=== PATIENT | female | born 1985 | race Caucasian/White ===

== ENCOUNTER 2016-04-21 14:54 | Emergency (ER) | payer OTHER ==
--- NOTE | 2016-04-21 16:16 | ED MED RECONCILIATION SUMMARY ---
Patient: CARSON JING Jeremias Medication Reconciliation Report [facility] VisitID: [id number] [address] [address] 30y, F Registration Date/Time: 04/21/2016 Weight: 80.7 kg Height/Length: 69 in. BMI: 26.3 ALLERGIES: No Known Drug Allergy The patient's Home Medications are listed below: THE FOLLOWING MEDICATIONS NEED TO BE RECONCILED: Adderall Oral 20 mg, 2x a day The source(s) of the original Home Medication information: patient The following Medications were given to the patient in the Emergency Department: None. The following Medications were prescribed to the patient: None.
--- NOTE | 2016-04-21 16:16 | ED MAR SUMMARY ---
..... Medication Administration Record [facility] [address], [place] [id number] Patient: JING BYRD Visit ID: [id number] 30y, F Weight: 80.7 kg Height/Length: 69 in BMI: 26.3 ALLERGIES: No Known Drug Allergy
--- NOTE | 2016-04-21 16:16 | ED MED RECONCILIATION SUMMARY ---
Patient: CARSON JING Jeremias Medication Reconciliation Report [facility] VisitID: [id number] [address] [place] [address] 30y, F Registration Date/Time: 04/21/2016 Weight: 80.7 kg Height/Length: 69 in. BMI: 26.3 ALLERGIES: No Known Drug Allergy The patient's Home Medications are listed below: THE FOLLOWING MEDICATIONS NEED TO BE RECONCILED: Adderall Oral 20 mg, 2x a day The source(s) of the original Home Medication information: patient The following Medications were given to the patient in the Emergency Department: None. The following Medications were prescribed to the patient: None.
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
--- NOTE | 2016-04-21 16:16 | ED MAR SUMMARY ---
..... Medication Administration Record [facility] [address], [place] [id number] Patient: JING BYRD Visit ID: [id number] 30y, F Weight: 80.7 kg Height/Length: 69 in BMI: 26.3 ALLERGIES: No Known Drug Allergy
== END 2016-04-21 15:32 | disposition left against medical advice (07) ==
LOC: ED SRH 14:54
DX: Z53.21 Procedure and treatment not carried out due to patient leaving prior to being seen by health care provider (principal)

== ENCOUNTER 2016-07-25 16:58 | Emergency (ER) | payer OTHER ==
--- NOTE | 2016-07-25 18:11 | DIAGNOSTIC IMAGING REPORT ---
PROCEDURE: XR ELBOW 3 OR 4 VIEWS - RIGHT INDICATION: PAIN TECHNIQUE: Four views. COMPARISON: None. FINDINGS: Osseous structures and joint spaces are normal. No evidence of an effusion. IMPRESSION: 1. Normal right elbow.
--- NOTE | 2016-07-25 18:12 | DIAGNOSTIC IMAGING REPORT ---
PROCEDURE: XR SHOULDER 2 OR MORE VW-RIGHT INDICATION: PAIN TECHNIQUE: Three views. COMPARISON: None. FINDINGS: Osseous structures and joint spaces are normal. IMPRESSION: 1. Normal right shoulder.
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
--- NOTE | 2016-07-25 18:49 | ED ORDER SUMMARY ---
..... Patient: JING BYRD OrderSheet [facility] VisitID: [id number] [address] [place] [address] 30y, F Registration Date/Time: 07/25/2016 ORDER SHEET Weight: 76.6 kg (stated) Allergies: No Known Drug Allergy GENERAL ORDERS: Shoulder 2V or more Right Urgent (17:16 07/25/2016 HBivens A.R.N.P.) (Ack 17:33 KHoerner) (17:40 KHoerner) Elbow 3 or 4V Right Urgent (17:16 07/25/2016 HBivens A.R.N.P.) (Ack 17:33 KHoerner) (17:40 KHoerner) EKG - ER Stat (17:16 07/25/2016 HBivens A.R.N.P.) (17:16 LNations ER Tech1) MEDICATION ORDERS: IV FLUIDS: ORDER SHEET NOTES: [Electronically signed by Rosetta Jha R.N. (19:04 07/25/2016)] [Electronically signed by Sharita Morrissey.R.N.P. (20:47 07/25/2016)] [Electronically locked/signed by Rosetta Jha R.N. (19:04 07/25/2016)]
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
--- NOTE | 2016-07-25 18:49 | ED ORDER SUMMARY ---
..... Patient: JING BYRD OrderSheet [facility] VisitID: [id number] [address] [place] [address] 30y, F Registration Date/Time: 07/25/2016 ORDER SHEET Weight: 76.6 kg (stated) Allergies: No Known Drug Allergy GENERAL ORDERS: Shoulder 2V or more Right Urgent (17:16 07/25/2016 HBivens A.R.N.P.) (Ack 17:33 KHoerner) (17:40 KHoerner) Elbow 3 or 4V Right Urgent (17:16 07/25/2016 HBivens A.R.N.P.) (Ack 17:33 KHoerner) (17:40 KHoerner) EKG - ER Stat (17:16 07/25/2016 HBivens A.R.N.P.) (17:16 LNations ER Tech1) MEDICATION ORDERS: IV FLUIDS: ORDER SHEET NOTES: [Electronically signed by Rosetta Jha R.N. (19:04 07/25/2016)] [Electronically signed by Sharita Morrissey.R.N.P. (20:47 07/25/2016)] [Electronically locked/signed by Rosetta Jha R.N. (19:04 07/25/2016)]
--- NOTE | 2016-07-25 20:47 | ED MAR SUMMARY ---
..... Medication Administration Record [facility] [address] [place], [place] [id number] Patient: JING BYRD Visit ID: [id number] 30y, F Weight: 76.6 kg Height/Length: 69 in BMI: 25 ALLERGIES: No Known Drug Allergy
--- NOTE | 2016-07-25 20:47 | ED MED RECONCILIATION SUMMARY ---
Patient: JING BYRD Medication Reconciliation Report [facility] VisitID: [id number] [address] [place] [address] 30y, F Registration Date/Time: 07/25/2016 Weight: 76.6 kg Height/Length: 69 in. BMI: 25.0 ALLERGIES: No Known Drug Allergy The patient's Home Medications are listed below: THE FOLLOWING MEDICATIONS NEED TO BE RECONCILED: Adderall Oral 20 mg, 2x a day The source(s) of the original Home Medication information: patient The following Medications were given to the patient in the Emergency Department: None. The following Medications were prescribed to the patient: Ultram 50 mg tablets: take 1-2 orally every 6 hours as needed for pain. Dispense twenty (20). No refills. Substitution is permissible. -- Sharita Morrissey A.R.N.P.
--- NOTE | 2016-07-25 20:47 | ED MAR SUMMARY ---
..... Medication Administration Record [facility] [address], [place] [id number] Patient: JING BYRD Visit ID: [id number] 30y, F Weight: 76.6 kg Height/Length: 69 in BMI: 25 ALLERGIES: No Known Drug Allergy
--- NOTE | 2016-07-25 20:47 | ED MED RECONCILIATION SUMMARY ---
Patient: JING BYRD Medication Reconciliation Report [facility] VisitID: [id number] [address] [place] [address] 30y, F Registration Date/Time: 07/25/2016 Weight: 76.6 kg Height/Length: 69 in. BMI: 25.0 ALLERGIES: No Known Drug Allergy The patient's Home Medications are listed below: THE FOLLOWING MEDICATIONS NEED TO BE RECONCILED: Adderall Oral 20 mg, 2x a day The source(s) of the original Home Medication information: patient The following Medications were given to the patient in the Emergency Department: None. The following Medications were prescribed to the patient: Ultram 50 mg tablets: take 1-2 orally every 6 hours as needed for pain. Dispense twenty (20). No refills. Substitution is permissible. -- Sharita Morrissey A.R.N.P.
--- NOTE | 2016-07-25 20:47 | ED DISCHARGE INSTRUCTIONS ---
Patient: JING BYRD General Instructions [facility] VisitID: [id number] [address] [place] [address] 30y, F Registration Date/Time: 07/25/2016 Acute upper extremity pain involving the right shoulder, right upper arm and right elbow. INSTRUCTIONS Warnings: GENERAL WARNINGS: Return or contact your physician immediately if your condition worsens or changes unexpectedly, if not improving as expected, or if other problems arise. Specifically return if problem worsens. Prescription Medications: Ultram 50 mg tablets: take 1-2 orally every 6 hours as needed for pain. Dispense twenty (20). No refills. Substitution is permissible. Follow-up: Follow up with your doctor tomorrow as scheduled even if well. Summary of care provided to patient. Understanding of the discharge instructions verbalized by patient. ADDITIONAL INFORMATION Osteoarthritis Osteoarthritis (also called Degenerative Joint Disease) is the most common form of arthritis in adults over 50. It is not the same as Rheumatoid Arthritis. The exact cause is not known but may be related to excess wear and tear on the joint over a long period of time. Prior injury to that joint, or repeated stress on a joint can also cause this type of arthritis. Osteoarthritis most often affects the hands, knees, spine and hips (in that order). The most common symptoms are joint stiffness, pain and swelling. Home Care: When a joint is more sore than usual, rest that joint for a day or two. Heat is very helpful. This can be provided by taking hot baths, applying a heating pad for up to 30 minutes at a time. Because symptoms are usually worse in the morning, many patients like to take a hot bath just after awakening to relax the muscle and soothe the joints. Exercise is the most important part of home treatment for osteoarthritis. This prevents the muscles and ligaments around the joint from becoming weak and helps maintain the full range of joint motion. This limits further damage to the joint. If you are overweight, this puts a lot of extra strain on weight-bearing joints of the lower back, hips, knees, feet and ankles. Losing weight will improve your arthritis symptoms in these joints. Talk to your doctor about a safe and effective weight loss program for yourself. Anti-inflammatory medicine such as ibuprofen (Advil, Motrin) or naproxen (Aleve) is often used to treat this condition. If this alone is not helping, your doctor may prescribe a stronger medicine. If narcotic pain medicines have been prescribed, they should be used in addition to anti-inflammatory drugs and only for severe pain. Follow Up with your doctor as advised by our staff. Get Prompt Medical Attention if any of the following occur: Redness or swelling of a painful joint Fever of 100.4F (38C) or higher, or as directed by your healthcare provider Worsening joint pain Shoulder Pain (Uncertain Cause) Shoulder pain often arises from the structures that surround the shoulder joint (the joint capsule, ligaments, tendons, muscles, and bursa). The joint itself contains cartilage that can become worn out or injured and can also be a source of pain. The correct treatment requires knowing the cause of the pain. Sometimes it is difficult to diagnose the exact cause of shoulder pain and referral to a specialist may be required. You may eventually need special tests such as CT scan, MRI, or arthroscopy (a procedure that uses special instruments to look inside the joint through a small incision). Shoulder pain can be treated initially with a sling or shoulder immobilizer and anti-inflammatory medicines such as ibuprofen. Special shoulder exercises may be needed. Follow-up with a specialist is important when pain is severe or does not go away after a few weeks. Home Care: If a sling was provided, leave it in place for the time advised by your doctor. If you are unsure how long to wear it, ask for advice. If the sling becomes loose, adjust it so that your forearm is level with the ground and the shoulder feels well supported. Apply an ice pack (ice cubes in a plastic bag, wrapped in a towel) over the injured area for 20 minutes every 1 to 2 hours the first day for pain relief. Continue this 3 to 4 times a day until the pain and swelling go away. You may use acetaminophen (Tylenol) or ibuprofen (Motrin, Advil) to control pain, unless another pain medicine was prescribed. (NOTE: If you have chronic liver or kidney disease or ever had a stomach ulcer or GI bleeding, talk with your doctor before using these medicines.) Shoulder pain may seem worse at night, when there is less to distract you from the pain. If you sleep on your side, try to keep your weight off your painful shoulder. Propping pillows behind you may prevent you from rolling over onto that shoulder during sleep. Shoulder joints become stiff if left in a sling for too long. Ejhlr-xu-[id number] exercises should usually be started within the first 10 days after injury. Consult your doctor on what type of exercises to do and how soon to start. You may remove the sling to shower or bathe. Follow Up with your doctor, or as advised by our staff, if you are not starting to improve within the next 5 days. Get Prompt Medical Attention if any of the following occur: Pain or swelling increases Hand or fingers becomes cold, blue, numb, or tingly Large amount of bruising of the shoulder or upper arm Tramadol Hydrochloride Oral tablet What is this medicine? TRAMADOL (TRA ma dole) is a pain reliever. It is used to treat moderate to severe pain in adults. How should I use this medicine? Take this medicine by mouth with a full glass of water. Follow the directions on the prescription label. If the medicine upsets your stomach, take it with food or milk. Do not take more medicine than you are told to take. Talk to your agricultural real estate agent regarding the use of this medicine in children. Special care may be needed. What side effects may I notice from receiving this medicine? Side effects that you should report to your doctor or health long term acute care registered nurse as soon as possible: allergic reactions like skin rash, itching or hives, swelling of the face, lips, or tongue breathing difficulties, wheezing confusion itching light headedness or fainting spells redness, blistering, peeling or loosening of the skin, including inside the mouth seizures Side effects that usually do not require medical attention (report to your doctor or health long term acute care registered nurse if they continue or are bothersome): constipation dizziness drowsiness headache nausea, vomiting What may interact with this medicine? Do not take this medicine with any of the following medications: MAOIs like Carbex, Eldepryl, Marplan, Nardil, and Parnate This medicine may also interact with the following medications: alcohol or medicines that contain alcohol antihistamines benzodiazepines bupropion carbamazepine or oxcarbazepine clozapine cyclobenzaprine digoxin furazolidone linezolid medicines for depression, anxiety, or psychotic disturbances medicines for migraine headache like almotriptan, eletriptan, frovatriptan, naratriptan, rizatriptan, sumatriptan, zolmitriptan medicines for pain like pentazocine, buprenorphine, butorphanol, meperidine, nalbuphine, and propoxyphene medicines for sleep muscle relaxants naltrexone phenobarbital phenothiazines like perphenazine, thioridazine, chlorpromazine, mesoridazine, fluphenazine, prochlorperazine, promazine, and trifluoperazine procarbazine warfarin What if I miss a dose? If you miss a dose, take it as soon as you can. If it is almost time for your next dose, take only that dose. Do not take double or extra doses. Where should I keep my medicine? Keep out of the reach of children. Store at room temperature between 15 and 30 degrees C (59 and 86 degrees F). Keep container tightly closed. Throw away any unused medicine after the expiration date. What should I tell my health care provider before I take this medicine? They need to know if you have any of these conditions: brain tumor depression drug abuse or addiction head injury if you frequently drink alcohol containing drinks kidney disease or trouble passing urine liver disease lung disease, asthma, or breathing problems seizures or epilepsy suicidal thoughts, plans, or attempt; a previous suicide attempt by you or a family member an unusual or allergic reaction to tramadol, codeine, other medicines, foods, dyes, or preservatives or trying to get breast-feeding What should I watch for while using this medicine? Tell your doctor or health long term acute care registered nurse if your pain does not go away, if it gets worse, or if you have new or a different type of pain. You may develop tolerance to the medicine. Tolerance means that you will need a higher dose of the medicine for pain relief. Tolerance is normal and is expected if you take this medicine for a long time. Do not suddenly stop taking your medicine because you may develop a severe reaction. Your body becomes used to the medicine. This does NOT mean you are addicted. Addiction is a behavior related to getting and using a drug for a non-medical reason. If you have pain, you have a medical reason to take pain medicine. Your doctor will tell you how much medicine to take. If your doctor wants you to stop the medicine, the dose will be slowly lowered over time to avoid any side effects. You may get drowsy or dizzy. Do not drive, use machinery, or do anything that needs mental alertness until you know how this medicine affects you. Do not stand or sit up quickly, especially if you are an older patient. This reduces the risk of dizzy or fainting spells. Alcohol can increase or decrease the effects of this medicine. Avoid alcoholic drinks. You may have constipation. Try to have a bowel movement at least every 2 to 3 days. If you do not have a bowel movement for 3 days, call your doctor or health long term acute care registered nurse. Your mouth may get dry. Chewing sugarless gum or sucking hard candy, and drinking plenty of water may help. Contact your doctor if the problem does not go away or is severe. You have been given the following additional information: Osteoarthritis Shoulder Pain (Uncertain Cause) Tramadol Hydrochloride Oral tablet (Electronically signed by Sharita Morrissey A.R.N.P. 07/25/2016 20:47)
== END 2016-07-25 18:55 | disposition home or self-care (01) ==
LOC: ED SRH 16:58
DX: M25.511 Pain in right shoulder (principal); M25.521 Pain in right elbow; M79.621 Pain in right upper arm; F17.200 Nicotine dependence, unspecified, uncomplicated; Z85.41 Personal history of malignant neoplasm of cervix uteri; Z79.899 Other long term (current) drug therapy